=== PATIENT | female | born 1955 ===

== ENCOUNTER 2018-01-14 08:48 | Outpatient (CLI) | payer OTHER | END 2018-01-14 08:53 | disposition home or self-care (01) | LOC: RX STUDY 08:48 | DX: R12 Heartburn (principal); E11.9 Type 2 diabetes mellitus without complications; R19.5 Other fecal abnormalities; K59.09 Other constipation; K30 Functional dyspepsia ==

== ENCOUNTER 2018-07-11 08:21 | Outpatient (CLI) | payer OTHER | END 2018-07-11 08:39 | disposition home or self-care (01) | LOC: NUCLEAR 08:21 | DX: C85.18 Unspecified B-cell lymphoma, lymph nodes of multiple sites (principal); Z51.0 Encounter for antineoplastic radiation therapy | CPT/HCPCS: 78815; A9552 ==

== ENCOUNTER 2019-01-03 07:26 | Outpatient (CLI) | payer OTHER | END 2019-01-03 08:02 | disposition home or self-care (01) | LOC: RAD 07:26 → MAMO-SONO 08:15 | DX: Z12.31 Encounter for screening mammogram for malignant neoplasm of breast (principal); Z87.898 Personal history of other specified conditions; C50.911 Malignant neoplasm of unspecified site of right female breast; C50.912 Malignant neoplasm of unspecified site of left female breast; C83.30 Diffuse large B-cell lymphoma, unspecified site; M54.5 Low back pain; M19.90 Unspecified osteoarthritis, unspecified site; M81.0 Age-related osteoporosis without current pathological fracture ==

== ENCOUNTER 2019-07-25 10:48 | Outpatient (CLI) | payer OTHER | END 2019-07-25 10:50 | disposition home or self-care (01) | LOC: RAD 10:48 | DX: S40.012A Contusion of left shoulder, initial encounter (principal); S10.83XA Contusion of other specified part of neck, initial encounter ==

== ENCOUNTER 2019-08-20 08:05 | Outpatient (CLI) | payer OTHER | END 2019-08-20 08:18 | disposition home or self-care (01) | LOC: NUCLEAR 08:05 | DX: C85.18 Unspecified B-cell lymphoma, lymph nodes of multiple sites (principal); Z51.0 Encounter for antineoplastic radiation therapy | CPT/HCPCS: 78815; A9552 ==

== ENCOUNTER 2020-11-24 08:14 | Outpatient (CLI) | payer OTHER | END 2020-11-24 08:32 | disposition home or self-care (01) | LOC: NUCLEAR 08:14 | PROVIDERS: ATTEND Internal Medicine Hematology & Oncology | DX: C83.83 Other non-follicular lymphoma, intra-abdominal lymph nodes (principal) | CPT/HCPCS: 78815; A9552 ==

== ENCOUNTER 2021-02-17 09:19 | Outpatient (CLI) | payer OTHER | END 2021-02-17 09:23 | disposition home or self-care (01) | LOC: SONOGRAMA 09:19 | PROVIDERS: ATTEND Pathology Anatomic Pathology & Clinical Pathology | DX: E04.1 Nontoxic single thyroid nodule (principal); E04.8 Other specified nontoxic goiter; E03.1 Congenital hypothyroidism without goiter ==